=== PATIENT | male | born 1990 | race Caucasian/White ===

== ENCOUNTER 2022-12-11 17:10 | Day surgery (SDC) | payer BC ==
[2022-12-11] MEDS ORDERED: Ondansetron 4 MG/2 ML SDV IVPUSH ONE (17:46)
[2022-12-11] MEDS ORDERED: Sodium Chloride 0.9% 10 ML Syringe FLUSH PRN (17:46)
[2022-12-11] MEDS ORDERED: Sodium Chloride 0.9% 1,000 ML IV SCH ×2 (18:00→22:45)
[2022-12-11] MEDS ORDERED: Iopamidol 612 MG/ML 100 ML Bottle IVPUSH ONE (18:19)
[2022-12-11] MEDS ORDERED: Lidocaine 1% 5 ML VIAL ONE (20:49)
[2022-12-11] MEDS ORDERED: Midazolam 1 MG/ML 2 ML SDV ONE (20:49)
[2022-12-11] MEDS ORDERED: Ondansetron 4 MG/2 ML SDV ONE ×2 (20:49→21:15)
[2022-12-11] MEDS ORDERED: fentaNYL 100 MCG/2 ML SDV ONE ×2 (20:49→21:48)
[2022-12-11] MEDS ORDERED: Propofol 200 MG/20 ML SDV ONE (20:49)
[2022-12-11] MEDS ORDERED: Rocuronium 50 MG/5 ML Vial ONE (20:49)
[2022-12-11] MEDS ORDERED: Ondansetron 4 MG/2 ML SDV IVPUSH PRN (21:00)
[2022-12-11] MEDS ORDERED: fentaNYL 100 MCG/2 ML SDV IVPUSH PRN (21:00)
[2022-12-11] MEDS ORDERED: HYDROmorphone 0.5 MG/0.5 ML Syringe IVPUSH PRN (21:00)
[2022-12-11] MEDS ORDERED: Metoclopramide 10 MG/2 ML SDV ONE (21:27)
[2022-12-11] MEDS ORDERED: Dexamethasone 4 MG/ML 5 ML MDV ONE (21:31)
[2022-12-11] MEDS ORDERED: Piperacillin/Tazobactam 4.5 GM Vial ONE (21:34)
[2022-12-11] MEDS ORDERED: Sodium Chloride 0.9% 100 ML ONE (21:34)
[2022-12-11] MEDS: Bupivacaine 0.5%/EPINEPHrine 1:200,000 50 ML MDV ONE ×2 (21:39→21:45)
[2022-12-11] MEDS ORDERED: Piperacillin/Tazobactam 4.5 GM in Sodium Chloride 0.9% 100 ML IV ONE (21:39)
[2022-12-11] MEDS: Lidocaine 1% 30 ML SDV ONE ×2 (21:39→21:45)
[2022-12-11] MEDS ORDERED: Neostigmine Methylsulfate 10 MG/10 ML MDV ONE (21:52)
[2022-12-11] MEDS ORDERED: Ketorolac 30 MG/ML SDV ONE (21:58)
[2022-12-11] MEDS ORDERED: oxyCODONE 5 MG Tab PO PRN (22:28)
[2022-12-11] MEDS ORDERED: Lactated Ringers 1,000 ML ONE (23:43)
[2022-12-12] MEDS ORDERED: Piperacillin/Tazobactam 4.5 GM in Sodium Chloride 0.9% 100 ML IV SCH (05:30)
== END 2022-12-12 12:37 | disposition home or self-care (01) ==
LOC: JD.ED 17:10 → SUPCPDRO 17:10 → JD.SDS 20:12 → JD.OB 23:05 → JD.SDS 12-12 12:37
PROVIDERS: ATTEND Surgery
DX: K35.30 Acute appendicitis with localized peritonitis, without perforation or gangrene (principal); A41.9 Sepsis, unspecified organism; Z79.899 Other long term (current) drug therapy
CPT/HCPCS: 36415; 44970; 74177; 80053; 83690; 83735; 85025; 86140; 96361; 96374; 99285; J1100; J1885; J2250; J2405; J2543; J2704; J2710; J2765; J3010; J3490; J7030; J7120; Q9967; 00840

== ENCOUNTER 2025-04-18 19:08 | Emergency (ER) | payer BC ==
[2025-04-18 20:19] LABS: BASOPHILS ABSOLUTE AUTO 0.1 K/mm3 (0.0-0.2); BASOPHILS PERCENT AUTO 0.7 % (0.0-1.0); EOSINOPHILS ABSOLUTE AUTO 0.2 K/mm3 (0.0-0.4); EOSINOPHILS PERCENT AUTO 1.6 % (0.0-6.0); IMMATURE GRAN ABSOLUTE AUTO 0.02 K/mm3 (0.00-0.05); IMMATURE GRAN PERCENT AUTO 0.2 % (0.0-0.4); LYMPHOCYTES ABSOLUTE AUTO 2.4 K/mm3 (1.0-4.8); LYMPHOCYTES PERCENT AUTO 22.8 % (24.0-44.0); MEAN PLATELET VOLUME 10.0 fl (9.4-12.4); MONOCYTES ABSOLUTE AUTO 1.0 K/mm3 (0.0-0.8); MONOCYTES PERCENT AUTO 8.9 % (0.0-8.0); NEUTROPHILS ABSOLUTE AUTO 7.0 K/mm3 (1.8-7.7); NEUTROPHILS PERCENT AUTO 65.8 % (41.0-71.0); NRBC ABSOLUTE 0.00 (0.00-0.02); NRBC PERCENT 0.0 % (0.0-0.2); PLATELET COUNT,PLT 233 K/mm3 (150-400); RED BLOOD CELL COUNT 4.99 M/mm3 (4.52-5.90); WHITE BLOOD CELL COUNT,WBC 10.67 K/mm3 (3.9-11.3)
[2025-04-18 20:43] LABS: A/G RATIO 1.2 (1-2); ALANINE AMINOTRANSFERASE,ALT 40.0 U/L (16-63); ASPARTATE AMNIOTRANSFERASE,AST 22.0 U/L (15-37); BILIRUBIN TOTAL 0.4 mg/dL (0.2-1.0); BLOOD UREA NITROGEN,BUN 15.0 mg/dL (7-18); CARBON DIOXIDE,CO2 28.0 mEq/L (21-32); CHLORIDE,CL 103.0 mEq/L (98-107); CREATININE 1.1 mg/dL (0.7-1.3); EST CRCL DRUG DOSING (CG) 93.73 mL/min; ESTIMATED GFR 90.0 mL/min (>60); GLUCOSE RANDOM 101.0 mg/dL (70-99); POTASSIUM,K 3.8 mEq/L (3.5-5.1); PROTEIN TOTAL,TP 7.1 g/dl (6.4-8.2); SODIUM,NA 139.0 mEq/L (136-145)
[2025-04-18 21:01] LABS: APPEARANCE,URINE CLEAR (Clear); GLUCOSE,URINE NEGATIVE (Negative); OCCULT BLOOD,URINE NEGATIVE (Negative)
[2025-04-18 21:14] LABS: EPITHELIAL CELLS,URINE NOT SEEN /hpf (0-5)
== END 2025-04-18 22:34 | disposition home or self-care (01) ==
LOC: JD.ED 19:08
DX: N45.3 Epididymo-orchitis (principal); Z79.899 Other long term (current) drug therapy
CPT/HCPCS: 36415; 76870; 80053; 81001; 85025; 93975; 99284; A9270; 99283